=== PATIENT | male | born 1940 | race Caucasian/White ===

== ENCOUNTER 2018-03-20 06:18 | Outpatient (CLI) | payer OTHER ==
--- NOTE | 2018-03-20 09:02 | STECHOSEST ---
Date of Test: 03/20/18 Ordering Physician: DR. TORSTEN LUONG Occupation: MANAGEMENT,[employer]AL[employer] Reason for Exam:SOB, COPD, HTN, LVH, DIZZINESS Smoking History: NO Height: 71" Weight: 208 LBS Current Medications: LISINOPRIL, ALLOPURINOL, INDOMETHACIN Target Heart Rate: 122/144 Resting EKG: SINUS RHYTHM/ NO ACUTE CHANGES S-T SEGMENT STAGE MPH/GRADE HEART RATE BPM BLOOD PRESSURE mmhg RHYTHM +/- ELEVATION DEPRESSION SYMPTOMS,COMMENTS At Rest 75 140/88 SR X NONE 1 1.7/10% 115 150/86 SR X NONE 2 2.5/12% 3 3.4/14% 4 4.2/16% 5 5.0/18% Immediately after 135 SR X SHORT OF BREATH Minutes Post Exercise 4:00 85 162/90 SR X NO COMMENTS Minutes Post Exercise 6:00 80 148/84 SR X NO COMMENTS Total Time: 4:22 Maximum Heart Rate Reached: 135 BPM Reason for Termination: SHORT OF BREATH 98% Oxygen saturation on room air at rest/ 91% oxygen saturation on room air with exercise Mets 7.0 INTERPRETATION 1. TEST NEGATIVE FOR ISCHEMIC ST-T WAVE CHANGES 2. PAC'S NOTED --FEW WITH EXERCISE 3. NO ACUTE CHANGES OR DISCOMFORT 4. BLOOD PRESSURE RESPONSE: BORDERLINE HYPERTENSION WITH EXERCISE NORMAL LEFT VENTRICULAR CONTRACTILITY--RESTING AND POST EXERCISE MTDD
--- NOTE | 2018-03-20 10:10 | US ---
EXAM: Ultrasound bilateral carotid duplex. HISTORY: Previous cerebrovascular accident. Hypertension. Dizziness. COMPARISON: None available. TECHNIQUE: Multiple do scale and color Doppler images were obtained. FINDINGS: Please note that estimates of internal carotid artery stenoses are based upon NASCET crite lenin. Right carotid: Mixed plaquing present without visualized 50% or greater stenosis. Peak systolic alley ocity measurement in the right internal carotid artery is 0.9 meters per second. Right internal to c ommon carotid artery peak systolic velocity ratio measures 1.5. End diastolic velocity measurement i n the right internal carotid artery is 0.3 meters per second. Flow in the right vertebral artery is antegrade. Left carotid: Mixed plaquing noted which is greater than on the contralateral side which approaches 50% stenosis in the proximal internal carotid artery. Peak systolic velocity measurement in the left internal carotid artery is 1.1 meters per second. Left internal to common carotid artery peak systo lic velocity ratio measures 1.4. End diastolic velocity measurement in the left internal carotid art josias measures 0.3 meters per second. Flow in the left vertebral artery is antegrade. IMPRESSION: 1. Mild, less than 50%, right and left internal carotid artery stenoses. 2. Antegrade flow in both vertebral arteries.
--- NOTE | 2018-03-20 15:37 | NM ---
Cardiac Stress Test HISTORY: Shortness of breath, chronic obstructive pulmonary disease, hypertension, LVH.. COMPARISON: None of this type. TECHNIQUE: Resting: The patient was injected with 12.8 mCi of 99m technetium Sestamibi (Cardiolite) intravenous ly after which a "resting" SPECT study of the heart was performed. Stress: The patient was stressed using a Surendra protocol and at the appropriate time injected with 32 .7 mCi of 99m technetium Sestamibi (Cardiolite) after which a "stress" SPECT study of the heart was p erformed. Gated images of the heart were also obtained to assess wall motion and calculate ejection f raction. For details of the stress protocol employed, reference is made to the separate report of e performing physician. FINDINGS: The stress perfusion images demonstrate a generally uniform distribution of activity in th e left ventricular myocardium. The resting perfusion images demonstrate no evidence of significant r edistribution/ischemia. The left ventricular ejection fraction (LVEF) is 70 %. The left ventricular wall motion is within normal limits. IMPRESSION: 1. Left ventricular myocardial perfusion is within normal limits. 2. The left ventricular ejection fraction (LVEF) is 70 %. 3. The left ventricular wall motion is within normal limits.
--- NOTE | 2018-03-23 10:15 | ECHO2D ---
Date of Exam: 03/20/18 Ordering Physician: DR. TORSTEN LUONG Room #: OP Reason for Echo: LVH, SOB, HTN, COPD, DIZZINESS M-Mode Normal Adult Results LV Dimensions Normal Adult Results AoV Opening excursions >1.6 >1.6 LVEDD-base- 3.5-5.8 4.9 Ao root dimensions 2.0-3.7 3.4 LVESD-base- 3.1-4.6 L. Atrium dimensions 1.9-3.8 4.4 Post. Wall thickness 0.8-1.1 1.2 IV septum (thickness) 0.7-1.2 1.2 Post. Wall excursion 0.72-1.3 NORMAL Septal motion NORMAL Systolic motion R. Ventricular cavity 1.5-2.0 NORMAL LVEF 60% 54% Paradoxical septal wall motion NORMAL 2-D : 2-D M Mode Echocardiogram was performed using apical four chamber and left parasternal long and short axis views. Mitral, tricuspid and aortic valves appear to be normal. Contractility of the left ventricle seems to be normal, so is the cavity size. Enlarged Left atrial cavity size. Aortic root appears to be normal. There is no pericardial effusion. There is no thrombus noted in the left ventricular or left aortic cavity. No mitral valve prolapse noted. M-MODE: MV: NORMAL AV: NORMAL TV: NORMAL PV: CHAMBER SIZE: ENLARGED LEFT ATRIAL CAVITY WALL MOTION: NORMAL PERICARDIUM: NORMAL INTERPRETATION: 1. BORDERLINE LEFT VENTRICULAR HYPERTROPHY WITH ENLARGED LEFT ATRIAL CAVITY 2. NORMAL LEFT VENTRICULAR CONTRACTILITY 3. NORMAL VALVES MTDD
--- NOTE | 2018-03-23 10:18 | ECHOSTRESS ---
Date of Exam: 03/20/18 Ordering Physician: DR. TORSTEN LUONG Reason for Echo: SOB, COPD, LVH, HTN, STRESS TEST--NO ISCHEMIA M-Mode Normal Adult Results LV Dimensions Normal Adult Results AoV Opening excursions >1.6 LVEDD-base- 3.5-5.8 Ao root dimensions 2.0-3.7 LVESD-base- 3.1-4.6 L. Atrium dimensions 1.9-3.8 Post. Wall thickness 0.8-1.1 IV septum (thickness) 0.7-1.2 Post. Wall excursion 0.72-1.3 Septal motion Systolic motion R. Ventricular cavity 1.5-2.0 LVEF 60% Paradoxical septal wall motion 2-D: NORMAL LEFT VENTRICULAR CONTRACTILITY--RESTING AND POST EXERCISE M-MODE: MV: AV: TV: PV: CHAMBER SIZE: WALL MOTION: NORMAL LEFT VENTRICULAR CONTRACTILITY--RESTING AND POST EXERCISE PERICARDIUM: INTERPRETATION: 1. NORMAL LEFT VENTRICULAR CONTRACTILITY--RESTING AND POST EXERCISE MTDD
== END 2018-03-20 06:19 | disposition home or self-care (01) ==
LOC: CAR 06:18
PROVIDERS: ATTEND Internal Medicine
DX: R06.02 Shortness of breath (principal); J44.9 Chronic obstructive pulmonary disease, unspecified; I10 Essential (primary) hypertension; I51.7 Cardiomegaly; R42 Dizziness and giddiness; Z86.39 Personal history of other endocrine, nutritional and metabolic disease
CPT/HCPCS: 93005; 93010